=== PATIENT | female | born 1930 | race Caucasian/White ===

== ENCOUNTER 2017-05-21 16:03 | Inpatient (IN) | payer MEDICARE, OTHER ==
[2017-05-21] MEDS ORDERED: VANCOMYCIN IV PER PHARMACY 1 EACH MISC MISCELLANE PRN (17:20)
[2017-05-21 17:46] VITALS: BMI 24.7
[2017-05-21] MEDS ORDERED: VANCOMYCIN 1,500 MG in SODIUM CHLORIDE 0.9% 250 ML IVPB ONE (18:00)
[2017-05-21] MEDS: RIVAROXABAN 15 MG TAB PO SCH (21:06)
[2017-05-21] MEDS: GABAPENTIN 300 MG CAP PO SCH (21:06)
[2017-05-21] MEDS: ETODOLAC 400 MG TAB PO SCH (21:06)
[2017-05-22] MEDS: HYDROcodone/APAP 5-325MG 1 EACH TAB PO PRN ×4 (07:22→20:16)
[2017-05-22] MEDS: DULoxetine HCL 60 MG CAPSULE.DR PO SCH (07:27)
[2017-05-22] MEDS: CHOLECALCIFEROL 1,000 UNIT TAB PO SCH (07:27)
[2017-05-22] MEDS: PANTOPRAZOLE 40 MG TABLET PO SCH (07:27)
[2017-05-22] MEDS: ETODOLAC 400 MG TAB PO SCH ×2 (07:27→20:16)
[2017-05-22] MEDS: FUROSEMIDE 20 MG TAB PO SCH (07:28)
[2017-05-22] MEDS: METOPROLOL SUCCINATE (ER) 100 MG TAB.ER.24H PO SCH (07:28)
[2017-05-22] MEDS: LISINOPRIL 10 MG TAB PO SCH (07:28)
[2017-05-22 08:14] LABS: ALT 29 U/L (9-52); AST 14 U/L (14-36); Alkaline Phosphatase 71 U/L (38-126); Anion Gap 9 mmol/L; Blood Urea Nitrogen 39 mg/dL (7-17); Calcium 9.7 mg/dL (8.4-10.2); Carbon Dioxide 26 mmol/L (22-30); Chloride 102 mmol/L (98-107); Glucose 83 mg/dL (74-99); Non-African American GFR(MDRD) 53 (>60 ml/min/1.73 sqM); Potassium 4.8 mmol/L (3.5-5.1); Sodium 137 mmol/L (137-145); Total Bilirubin 0.5 mg/dL (0.2-1.3); Total Protein 6.1 g/dL (6.3-8.2)
[2017-05-22 08:28] LABS: Basophils % (A) 0 %; CHCM 28.7; Eosinophils # (A) 0.5 k/uL (0-0.7); Eosinophils % (A) 6 %; HCT 28.7 % (34.0-46.0); Hypochromasia Marked; Luc # (Auto) 0.14; Luc % (Auto) 2; Lymphocytes # (A) 0.7 k/uL (1.0-4.8); Lymphocytes % (A) 9 %; MCH 22.6 pg (25.0-35.0); MCHC 29.4 g/dL (31.0-37.0); MCV 76.7 fL (80.0-100.0); Mean Platelet Volume 6.8; Microcytosis Slight; Monocytes # (A) 0.5 k/uL (0-1.0); Monocytes % (A) 6 %; Neutrophils # (A) 5.8 k/uL (1.3-7.7); Neutrophils % (A) 77 %; RBC 3.74 m/uL (3.80-5.40); RDW 15.3 % (11.5-15.5); WBC 7.6 k/uL (3.8-10.6); WBC (Perox) 7.73
[2017-05-22 08:29] LABS: HGB 8.4 gm/dL (11.4-16.0)
--- NOTE | 2017-05-22 10:36 | HP ---
CHIEF COMPLAINT: Sore left robertson. HISTORY OF PRESENT ILLNESS: This is an 87-year old female who was admitted to the hospital after being transferred from the [facility]. Dr. Stovall is a surgeon who takes care of her wounds. The patient back in about three weeks ago , developed an ulceration of the left robertson. The patient had stasis related blisters and breakdown. The patient had subsequently progressively worsened ulcerations of the left leg. She also has some inflammation ulceration of the right second toe. The patient has history of chronic venous stasis. She was seen by Dr. Stovall over the past two weeks. The patients ulcerations progressed significantly. They were debrided today. She has developed some increased areas which might have been also somewhat related to reaction from the Santyl cream that was being used. The patient is not very compliant about staying, keeping her legs elevated. The patient moves around in a wheelchair or a walker with a seat. She is not running any fever or chills. Dr. Stovall felt the patient might be starting with some cellulitis and wanted her to be admitted for some IV antibiotic. The patient, otherwise, denies any other major symptoms, fever, chills, any increased pain or discomfort. There is some mild drainage from the ulcers. PAST MEDICAL HISTORY: Significant for: 1. Chronic venous stasis 2. CA of the breast. 3. Hyperlipidemia. 4. Osteoarthritis. 5. Hypertension. 6. Degenerative disc disease lumbosacral region. 7. Bronchial asthma. 8. Hypothyroidism. 9. Chronic atrial fibrillation. 10. Polypharmacy. 11. Depression. 12. Some scoliosis. 13. Umbilical hernia. PAST SURGICAL HISTORY: Significant for appendectomy, total abdominal hysterectomy, bilateral salpingo-oophorectomy, bladder suspension times three. Large left forehead laceration, left mastectomy, bilateral ankle ORIF, foot surgery, right hip ORIF, bilateral total knee arthroplasty. PERSONAL HISTORY: Nonsmoker, never a smoker, alcohol none. SOCIAL HISTORY: The patient is . Lives alone. She does have a caregiver. No exercise. FAMILY MEDICAL HISTORY: The patient's father age 72, ASHD, history of CA of the colon, mother age of 69 of abdominal malignancy of unknown primary , brother age 86 history of COPD, brother age 58, carcinoma of the lung, a son age 19, motor vehicle accident. A son 57 years of age, living, adequate health. REVIEW OF SYSTEMS: NEURO: Denies any headaches. Dizziness. PSYCH: No anxiety. CARDIAC: Denies chest pain, angina or palpitations. RESPIRATORY: Denies shortness of breath, cough, hemoptysis. GI: Denies any nausea, vomiting, abdominal pain or diarrhea or constipation. : No symptoms of dysuria or hematuria. Does have incontinence and frequency. EXTREMITIES: Some pain and discomfort left robertson. CONSTITUTIONAL: No fever or chills. HEMATOLOGICAL: No anemia or bleeding disorder. ENDOCRINE: No history of diabetes mellitus. PHYSICAL EXAMINATION: Vital signs reveals temperature 97.8, pulse 73, respirations 16, blood pressure 121/71. Pulse ox 91% on room air. HEENT: Normocephalic. NECK: No JVD. CHEST: Clear to auscultation. Mild generalized decreased air flow. CARDIAC: Distant heart sounds, S1, S2 with no gallops. Irregularly irregular rhythm. Systolic murmur 2/6 left sternal border. Abdomen is soft. Bowel sounds normal. Extremities reveals no edema. The patient has left leg with compression dressing done today from just proximal to the toes to just below the knee on the left side. On the right foot, the patient has dressing from the toes to the ankle. Neurologically: Awake, alert and oriented with well coordinated movements. Medications at home include: 1. Voltaren 75 mg b.i.d. 2. Vitamin D3 2000 units daily. 3. Metoprolol 600 mg daily. 4. [place] 5/325 q4h prn. 5. Gabapentin 300 mg q.h.s. 6. Lasix 20 mg daily. 7. Enalapril 5 mg daily. 8. Xarelto 15 mg daily. 9. Prilosec 20 mg daily. 10. Cymbalta 60 mg daily. The patients wound was examined by Dr. Stovall. I have not seen the wound. I have seen the pictures of the wound. The patient has quite an extensive, at least about a 9 inch area on the frontal aspect of the left lower leg with some cellulitic ulcerations circumferential from that area. The patients pedal pulses previously have been mildly decreased. Right foot picture of the second toe distally has significant swelling ulceration. ASSESSMENT: 1. Mild cellulitis left robertson and significant to right second toe. 2. Chronic venous insufficiency. 3. Probable mild underlying peripheral arterial disease. 4. Chronic atrial fibrillation. 5. Anticoagulated status. 6. Polypharmacy. 7. Previous history of carcinoma of the breast. 8. Degenerative arthritis. PLAN: Continue present medical regimen. The patient had a wound culture back in September which had shown Staph aureus Methicillin sensitive. We will start the patient on Vancomycin pending further cultures and evaluation. Cultures from the wound is not taken right now because the patient has a dressing with application of collagen. Prognosis remains guarded. The patient advised compliance with bed rest, elevation of the leg. The patient is going to require placement at nursing facility. GABINO
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
[2017-05-22] MEDS: VANCOMYCIN 1,250 MG in SODIUM CHLORIDE 0.9% 250 ML IVPB SCH (12:30)
--- NOTE | 2017-05-22 14:59 | XR ---
EXAMINATION TYPE: XR chest 2V DATE OF EXAM: 05/22/2017 COMPARISON: 07/28/16 HISTORY: Shortness of breath TECHNIQUE: Frontal and lateral views of the chest are obtained. FINDINGS: Scattered senescent parenchymal changes noted. Hyperinflation compatible with COPD. No evidence for infiltrate. No evidence for atelectasis. Heart size is stable. Large fixed hiatal hernia. Mediastinal structures are stable and grossly unremarkable. No evidence for hilar prominence. Degenerative changes dorsal spine. IMPRESSION: 1. No evidence for acute pulmonary disease.
[2017-05-22] MEDS: GABAPENTIN 300 MG CAP PO SCH (20:15)
[2017-05-22] MEDS: RIVAROXABAN 15 MG TAB PO SCH (20:15)
[2017-05-23] MEDS: HYDROcodone/APAP 5-325MG 1 EACH TAB PO PRN (06:30)
[2017-05-23] MEDS: PANTOPRAZOLE 40 MG TABLET PO SCH (07:49)
[2017-05-23] MEDS: CHOLECALCIFEROL 1,000 UNIT TAB PO SCH (07:49)
[2017-05-23] MEDS: ETODOLAC 400 MG TAB PO SCH ×2 (07:50→20:15)
[2017-05-23] MEDS: DULoxetine HCL 60 MG CAPSULE.DR PO SCH (07:50)
[2017-05-23] MEDS: LISINOPRIL 10 MG TAB PO SCH (07:50)
[2017-05-23] MEDS: FUROSEMIDE 20 MG TAB PO SCH (07:50)
[2017-05-23] MEDS: METOPROLOL SUCCINATE (ER) 100 MG TAB.ER.24H PO SCH (07:50)
[2017-05-23] MEDS ORDERED: HYDROcodone/APAP 5-325MG 1 EACH TAB PO STA (07:53)
--- NOTE | 2017-05-23 08:03 | P.PN ---
Subjective Principal diagnosis: Venous stasis ulcer anterior left lower leg, possible cellulitis requiring IV antibiotics.. History of chronic atrial fibrillation, congestive heart failure , COPD, GERD, hypertension, osteoporosis, stomach ulcers, right leg wound. POD #2 debridement of left lower leg ulcer in the wound care center. Patient currently sitting up in bed in no acute distress. Does admit to pain in her left lower extremity, recently received a pain pill. Objective - Vital Signs Vital signs: Vital Signs Temp 98.3 F 05/23/17 07:00 Pulse 83 05/23/17 07:00 Resp 16 05/23/17 07:00 BP 127/73 05/23/17 07:00 Pulse Ox 93 L 05/23/17 07:00 Intake & Output 05/22/17 05/23/17 05/23/17 18:59 06:59 18:59 Intake Total 1220 155 Balance 1220 155 Weight 74 kg 74 kg Intake: Intake, IV Titration 250 Amount Vancomycin 1,250 mg In 250 Sodium Chloride 0.9% 250 ml @ 125 mls/hr IVPB Q24HR@1200 [facility] Rx#: [id number] Oral 970 155 Other: Voiding Method Bedside Commode Bedside Commode Incontinent Incontinent # Voids 3 3 # Bowel Movements 2 1 - Constitutional General appearance: Present: cooperative, no acute distress - Respiratory Details: Lungs sounds diminished bilaterally. Respirations even, nonlabored. Currently on room air with oxygen saturation 93%. - Cardiovascular Details: S1, S2 present. Irregular but controlled rate, rhythm. Trace bilateral lower extremity edema - Gastrointestinal Gastrointestinal Comment(s): Abdomen soft, nontender, nondistended. Active bowel sounds 4 quadrants. Tolerating diet. - Genitourinary Genitourinary Comment(s): Voiding clear, yellow urine. Incontinent at times. - Musculoskeletal Musculoskeletal: Present: strength equal bilaterally - Psychiatric Psychiatric: Present: A&O x's 3, appropriate affect, intact judgment & insight - Allied health notes Allied health notes reviewed: nursing - Labs CBC & Chem 7: 05/22/17 07:28 05/22/17 07:28 Labs: Abnormal Lab Results - Last 24 Hours (Table) 05/22/17 05/22/17 Range/Units 07: 07:28 RBC 3.74 L (3.80-5.40) m/uL Hgb 8.4 L D (11.4-16.0) gm/dL Hct 28.7 L (34.0-46.0) % MCV 76.7 L (80.0-100.0) fL MCH 22.6 L (25.0-35.0) pg MCHC 29.4 L (31.0-37.0) g/dL Lymphocytes # 0.7 L (1.0-4.8) k/uL BUN 39 H (7-17) mg/dL Total Protein 6.1 L (6.3-8.2) g/dL Albumin 3.1 L (3.5-5.0) g/dL Assessment and Plan (1) Atrial fibrillation Status: Acute (2) GERD (gastroesophageal reflux disease) Status: Acute (3) Hypertension Status: Acute (4) Venous stasis ulcer of left lower extremity Status: Acute (5) Cellulitis of left lower extremity Status: Acute Plan: 1. Left lower extremity wound cleaned, Opticell AG dressing applied, covered with 4 x 4 gauze, wrapped with Kerlix and then Andrew wrapped. Dressing to be changed Friday, Friday, and Friday. 2. Continue IV antibiotics. 3. Patient may ambulate to the bathroom and sit up to eat. Otherwise, she should be laying down with her legs elevated higher than her heart. 4. Medical management per primary care services. 5. Will continue to follow while in the hospital. Patient to continue to see Dr. Stovall in the wound care center post discharge Time with Patient: Greater than 30
--- NOTE | 2017-05-23 11:05 | PN ---
CHIEF COMPLAINT: Re-evaluation HISTORY OF PRESENT ILLNESS: An 87-year-old who was admitted to the hospital from the Wound Center with an early cellulitis of the left leg. The patient also has had significant debridement of a venostasis ulceration. The patient ulcer is fairly large. The patient is being still managed by the Wound Center physicians. She has some collagen packing on the wound. It is being changed on Friday. Meanwhile, the patient is on antibiotic. The patient's culture was not taken at this time, previous was staph aureus has been isolated. Patient is actually feeling fairly well, no fever, chills. REVIEW OF SYSTEMS: NEURO: Denies any headaches, dizziness. PSYCH: History of chronic anxiety, depression. CARDIAC: No chest pain, angina, palpitations, history of atrial fibrillation. GI: No nausea, vomiting, abdominal pain, diarrhea. : No symptoms of dysuria, hematuria, urgency, frequency. EXTREMITIES: Some pain in the hands and lower extremities. CONSTITUTIONAL: No fever, chills. PHYSICAL EXAMINATION: A pleasant female at present in no distress. Vital signs revealed temperature 98.3, pulse 79, respirations 16, blood pressure 124/66, pulse ox of 95% on room air. HEENT: Normocephalic. NECK: No JVD. Chest is clear to auscultation and percussion. CARDIAC: Normal S1, S2 with no gallops, irregular rhythm, systolic murmur 2/6 left sternal border. ABDOMEN: Soft, bowel sounds present. EXTREMITIES: Reveal no edema. The patient has dressing on the left lower leg, right second toe has a dressing. Neurologically awake, alert, oriented x3 with well-coordinated movements. LABORATORY ASSESSMENT: CBC which was a hemoglobin of 8.4 with an MCV of 76.7, white count 7.6, platelets 398. Electrolytes are normal. BUN 39. Albumin 3.1. ASSESSMENT: 1. Left leg venostasis ulceration with early cellulitis. 2. Anemia, secondary to chronic blood loss. 3. Chronic atrial fibrillation. 4. Anticoagulated status. 5. Inflamed right second toe with cellulitis. 6. Malnutritional status with albumin of 3.1. PLAN: Continue present medical regimen. ( ). They patient may receive IV iron. The patient's condition discussed with the patient, prognosis remains guarded. MTDD
[2017-05-23] MEDS: VANCOMYCIN 1,250 MG in SODIUM CHLORIDE 0.9% 250 ML IVPB SCH (12:21)
[2017-05-23] MEDS: HYDROcodone/APAP 10-325MG 1 EACH TAB PO PRN ×2 (16:30→20:15)
[2017-05-23] MEDS: RIVAROXABAN 15 MG TAB PO SCH (20:15)
[2017-05-23] MEDS: GABAPENTIN 300 MG CAP PO SCH (20:15)
[2017-05-23 22:14] VITALS: PULSE 81
[2017-05-24] MEDS: HYDROcodone/APAP 10-325MG 1 EACH TAB PO PRN ×3 (04:11→13:55)
[2017-05-24 07:39] LABS: Reticulocyte % 2.3 % (0.5-2.0)
[2017-05-24 07:49] LABS: Anion Gap 12 mmol/L; Blood Urea Nitrogen 37 mg/dL (7-17); Calcium 9.7 mg/dL (8.4-10.2); Carbon Dioxide 28 mmol/L (22-30); Chloride 98 mmol/L (98-107); Glucose 87 mg/dL (74-99); Non-African American GFR(MDRD) >60 (>60 ml/min/1.73 sqM); Potassium 4.3 mmol/L (3.5-5.1); Sodium 138 mmol/L (137-145)
[2017-05-24] MEDS ORDERED: SODIUM FERRIC GLUCONAT-SUCROSE 125 MG in SODIUM CHLORIDE 0.9% 100 ML IVPB ONE ×2 (08:00→09:00)
[2017-05-24] MEDS: METOPROLOL SUCCINATE (ER) 100 MG TAB.ER.24H PO SCH (08:15)
[2017-05-24] MEDS: LISINOPRIL 10 MG TAB PO SCH (08:15)
[2017-05-24] MEDS: FUROSEMIDE 20 MG TAB PO SCH (08:15)
[2017-05-24] MEDS: CHOLECALCIFEROL 1,000 UNIT TAB PO SCH (08:15)
[2017-05-24] MEDS: DULoxetine HCL 60 MG CAPSULE.DR PO SCH (08:15)
[2017-05-24] MEDS: PANTOPRAZOLE 40 MG TABLET PO SCH (08:15)
[2017-05-24] MEDS: ETODOLAC 400 MG TAB PO SCH (08:16)
[2017-05-24 08:34] VITALS: BP 105/57; RESP 18; TEMP 97.9
[2017-05-24 10:14] LABS: Iron 20 ug/dL (37-170)
--- NOTE | 2017-05-24 10:16 | P.DS ---
Providers Date of admission: 05/21/17 16:46 Attending physician: Ivan Whyte Consults: 05/22/17 08:14 Consult Physician Routine Consulting Provider: Fito Stovall Consult Reason/Comments: possible vascular intervent lower extremity Do you want consulting provider notified?: Yes Primary care physician: Ivan Whyte [place] [facility] Course: This 87-year-old female was admitted to the hospital directly from the wound center. The patient's been following in the wound center for the past 3 weeks. She said venous stasis ulcerations left lower leg. The area had increased. No suggestion of early cellulitis. She is at multiple blister sites which are now opened up. This is circumferential. The patient is not getting good care for self at home regarding these wounds. The patient in view of this is admitted to the hospital started on IV antibiotic continued wound dressings. She is doing better with elevation of her legs. She is can be transferred to nursing facility. Her legs look better. The ulcerations right greater toe is drying up the inflammation cellulitis changes have resolved. The patient's left leg is also appearing better according to the nurse practitioner. She has significant last surface of area. This is can be continued with wound dressings Friday. She'll follow-up in the outpatient wound center. Instructions for the wound care have been given by the wound Center and to follow-up on that. She is can have silver collagenase application and then dressing with mild compression with an Andrew wrap. We will continue her on oral Keflex. She was also recommended to take iron. The patient has a history of chronic atrial fibrillation and is on Xarelto. She is evidence of iron deficiency anemia suggestive of chronic blood loss patient's issues with polypharmacy. Has trimmed off a lot of her medication she takes over-the- counter's. Patient's been counseled regarding this. She is of the nature that more pills the better Final diagnosis to include 1. Cellulitis 2. Stasis ulcerations with exposure of fatty layer left leg. 3. Traumatic ulceration with infection right second toe 4. Blood blister drying up right foot 5. Iron deficiency anemia secondary to chronic blood loss 6. Chronic atrial fibrillation 7. Anticoagulated status 8. Multiple joint arthritic degeneration 9. Polypharmacy 10. Remote history of carcinoma the breast 11. Chronic urinary incontinence Plan - Discharge Summary New Discharge Prescriptions: New Cephalexin [Keflex] 500 mg PO QID #40 cap Iron Polysaccharides Complex [Niferex-150] 300 mg PO DAILY cap Continue Cholecalciferol [Vitamin D3] 2,000 unit PO DAILY Omeprazole [PriLOSEC] 20 mg PO AC-RUSTT Gabapentin [Neurontin] 300 mg PO HS Enalapril [Vasotec] 5 mg PO DAILY Rivaroxaban [Xarelto] 15 mg PO HS Metoprolol Succinate (ER) [Toprol XL] 100 mg PO DAILY Furosemide [Lasix] 20 mg PO DAILY DULoxetine HCL [Cymbalta] 60 mg PO DAILY Discontinued Diclofenac Sodium [Voltaren] 75 mg PO BID HYDROcodone/APAP 5-325MG [[place] 5-325] 1 tab PO Q4HR PRN PRN Reason: Pain Discharge Medication List Cholecalciferol [Vitamin D3] 2,000 unit PO DAILY 10/18/14 [History] Enalapril [Vasotec] 5 mg PO DAILY 10/18/14 [History] Gabapentin [Neurontin] 300 mg PO HS 10/18/14 [History] Omeprazole [PriLOSEC] 20 mg PO AC-BRKFST 10/18/14 [History] Furosemide [Lasix] 20 mg PO DAILY 05/07/17 [History] Metoprolol Succinate (ER) [Toprol XL] 100 mg PO DAILY 05/07/17 [History] Rivaroxaban [Xarelto] 15 mg PO HS 05/07/17 [History] DULoxetine HCL [Cymbalta] 60 mg PO DAILY 05/21/17 [History] Cephalexin [Keflex] 500 mg PO QID #40 cap 05/24/17 [Rx] Iron Polysaccharides Complex [Niferex-150] 300 mg PO DAILY cap 05/24/17 [Rx] Follow up Appointment(s)/Referral(s): Fito Stovall DO [Doctor of Osteopathic Medicine] - As Needed (IN WOUND CARE CENTER CALL FOR APPT) Activity/Diet/Wound Care/Special Instructions: Regular diet as tolerated Activity as tolerated Left lower leg cellulitis saline cleanse, opticel plus AG, 4x4 kerlix, andrew bandage lightly wrapped. Change Mon, Wed, Fri. Right 2nd toe dressing 2x2 gauze. Change daily and PRN DNR at [facility]
[2017-05-24 10:24] LABS: % Iron Saturation 5.7 % (20-50); Total Iron Binding Capacity 351 ug/dL (265-497)
--- NOTE | 2017-05-24 10:31 | PN ---
CHIEF COMPLAINT: Re-evaluation. HISTORY OF PRESENT ILLNESS: 87-year-old female admitted to the hospital with early cellulitis, left leg. The patient has a significant ulceration of the left leg secondary to venostasis ulcerations. She also has an ulcer at the right second toe. The patient has had no fever or chills. She is on antibiotic. She has had her leg ulcers redressed. She is feeling better. There is some increased pain at the site of the debrided skin wounds. The patient otherwise denies any other major symptoms. REVIEW OF SYSTEMS: NEURO: Denies any headaches or dizziness. PSYCH: Denies anxiety or depression. CARDIAC: Denies chest pain, angina or palpitations. RESPIRATORY: No shortness of breath, cough, hemoptysis. GI: No nausea, vomiting, abdominal pain, diarrhea. : No symptoms of dysuria or hematuria. EXTREMITIES: Denies pain. CONSTITUTIONAL: No fever or chills. PHYSICAL EXAMINATION: Pleasant female in no distress. VITAL SIGNS: Temperature 98.3, pulse 82, respirations 16, blood pressure 127/73 , pulse ox 93% on room air. HEENT: Normocephalic. NECK: No JVD. CHEST: Clear to auscultation. CARDIAC: Normal S1/S2 with no gallops. Systolic murmur 2/6 left sternal border. Irregular rhythm. ABDOMEN: Soft. Bowel sounds present. EXTREMITIES: Reveal no edema. Left leg wrapped to knee. Right foot second toe wrapped. NEUROLOGIC: Awake, alert, oriented with well coordinated movements upper extremities. LABORATORY ASSESSMENT: None new. ASSESSMENT: 1. Left leg ulcers. 2. Right second toe ulceration. 3. Chronic venous stasis. 4. Anemia. 5. Chronic atrial fibrillation. 6. Hypertension. 7. Previous history of cancer of the breast. PLAN: Continue present medical regimen. Patient's condition discussed with the patient. Prognosis remains guarded. She will be transferred to nursing facility for continued wound care and antibiotics for another week. She will be started on iron. Prognosis remains guarded. MTDD
[2017-05-24] MEDS: VANCOMYCIN 1,250 MG in SODIUM CHLORIDE 0.9% 250 ML IVPB SCH (11:39)
[2017-05-24] MEDS ORDERED: CEPHALEXIN 500 MG CAP PO SCH (13:00)
[2017-05-25] MEDS ORDERED: VANCOMYCIN TROUGH DUE 1 EACH MISC MISCELLANE ONE (11:00)
[2017-05-25] MEDS ORDERED: IRON POLYSACCHARIDES COMPLEX 150 MG CAP PO SCH (12:00)
== END 2017-05-24 14:15 | DRG 603 ==
LOC: 5MS5E 16:46
PROVIDERS: ADMIT Internal Medicine; ATTEND Internal Medicine
DX: L03.116 Cellulitis of left lower limb (principal); L97.222 Non-pressure chronic ulcer of left calf with fat layer exposed; I11.0 Hypertensive heart disease with heart failure; I50.9 Heart failure, unspecified; I48.2 Chronic atrial fibrillation; D50.0 Iron deficiency anemia secondary to blood loss (chronic); E03.9 Hypothyroidism, unspecified; E78.5 Hyperlipidemia, unspecified; I73.9 Peripheral vascular disease, unspecified; J44.9 Chronic obstructive pulmonary disease, unspecified; K21.9 Gastro-esophageal reflux disease without esophagitis; M19.90 Unspecified osteoarthritis, unspecified site; M41.9 Scoliosis, unspecified; M81.0 Age-related osteoporosis without current pathological fracture; R32 Unspecified urinary incontinence; L03.031 Cellulitis of right toe; F41.9 Anxiety disorder, unspecified; K42.9 Umbilical hernia without obstruction or gangrene; M51.37 Other intervertebral disc degeneration, lumbosacral region; F32.9 Major depressive disorder, single episode, unspecified; I87.8 Other specified disorders of veins; L97.519 Non-pressure chronic ulcer of other part of right foot with unspecified severity; Z79.01 Long term (current) use of anticoagulants; Z79.899 Other long term (current) drug therapy; Z96.653 Presence of artificial knee joint, bilateral; Z96.649 Presence of unspecified artificial hip joint; Z85.3 Personal history of malignant neoplasm of breast; Z82.49 Family history of ischemic heart disease and other diseases of the circulatory system
CPT/HCPCS: 71020; 80048; 80053; 82728; 83540; 83550; 85025; 85045; 97597; 97598

== ENCOUNTER 2017-06-04 11:28 | Day surgery (SDC) | payer MEDICARE, OTHER ==
[2017-05-29 12:50] VITALS: BMI 27.6
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
[~2017-06-04 11:28] MED LIST: LACTATED RINGERS 1,000 ML IV SCH; LIDOCAINE 1% 20 ML VIAL (10MG/ML) FOR IV START INTRADERMA PRN; ceFAZolin 2 GM in SODIUM CHLORIDE 0.9% 100 ML IVPB ONE
[2017-06-04] MEDS ORDERED: KETAMINE 10 MG/ML 20 ML VIAL ONE (12:07)
[2017-06-04] MEDS ORDERED: LACTATED RINGERS 1,000 ML IV ONE (12:07)
[2017-06-04] MEDS ORDERED: PROPOFOL 10 MG/ML 20 ML VIAL IV ONE (12:07)
[2017-06-04] MEDS ORDERED: LIDOCAINE 1% INJ 10MG/ML (20 ML MDV) ONE (12:07)
[2017-06-04] MEDS ORDERED: MIDAZOLAM 2 MG/2 ML VIAL ONE (12:07)
[2017-06-04 12:47] VITALS: TEMP 97.4
--- NOTE | 2017-06-04 13:09 | P.PCN ---
Date of Procedure: 06/04/17 Preoperative Diagnosis: Osteomyelitis distal tip right second toe Postoperative Diagnosis: Same Procedure(s) Performed: Amputation right second toe through middle phalanx Implants: Anesthesia: MAC Surgeon: Ftio Stovall Estimated Blood Loss (ml): 15 Pathology: none sent Condition: stable Disposition: PACU Indications for Procedure: Patient has an ulcer on the distal tip of the toe with the bone exposed Operative Findings: Proximal tissues appeared to have good blood supply and the bone was healthy at the middle phalanx. Description of Procedure: With the patient supine position, under benefit of IV sedation, we prepped and draped in standard fashion. We made a fishmouth incision a few millimeters proximal to the ulceration. We took this directly down to bone. We divided the bone with a bone cutter. We then utilize a Bebeto to take out the entire distal phalanx and the very distal tip of the middle phalanx. We irrigated with saline. We closed the incision with nylon. The patient tolerated the procedure well and was taken recovery area in stable condition.
[2017-06-04] MEDS: HYDROmorphone 1 MG/ML 1 ML SYRINGE IVP PRN ×3 (13:16→13:49)
[2017-06-04 14:05] VITALS: RESP 18
[2017-06-04 14:43] VITALS: BP 108/60; PULSE 82
== END 2017-06-04 15:11 | disposition home or self-care (01) ==
LOC: OR 11:28
PROVIDERS: ATTEND Thoracic Surgery (Cardiothoracic Vascular Surgery)
DX: E11.621 Type 2 diabetes mellitus with foot ulcer (principal); L97.514 Non-pressure chronic ulcer of other part of right foot with necrosis of bone; I48.91 Unspecified atrial fibrillation; Z79.01 Long term (current) use of anticoagulants; I11.0 Hypertensive heart disease with heart failure; I50.9 Heart failure, unspecified; J44.9 Chronic obstructive pulmonary disease, unspecified; K21.9 Gastro-esophageal reflux disease without esophagitis; F41.9 Anxiety disorder, unspecified; F32.9 Major depressive disorder, single episode, unspecified